=== PATIENT | male | born 1985 | race Caucasian/White ===

== ENCOUNTER 2021-09-10 15:49 | Emergency (ER) | payer OTHER ==
[2021-09-10 16:34] LABS: Urine Blood Negative (Negative); Urine Glucose Negative (Negative); Urine Protein Negative (Negative)
[2021-09-10 16:39] LABS: Absolute Lymphocytes (CBC) 1.3 K/uL (0.7-4.9); Hematocrit 45.4 % (39.6-49.0); Lymphocytes % 12.6 % (15.3-44.8); MCV 87.6 fL (80-100); MPV 8.7 fL (7.6-11.3); RBC Red Blood Cell Count 5.18 M/uL (4.33-5.43)
[2021-09-10 16:49] LABS: Albumin 4.2 g/dL (3.4-5.0); Bilirubin Total 0.6 mg/dL (0.2-1.0); Potassium 3.8 mmol/L (3.5-5.1); Protein, Total 8.1 g/dL (6.4-8.2)
[2021-09-10 17:05] LABS: Urine Bacteria <20 /HPF (<20); Urine RBC <5 /HPF (None Seen)
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
--- NOTE | 2021-09-10 17:30 | RAD REPORT ---
EXAM DESCRIPTION: CTAbdomen Pelvis W Contrast - 09/10/2021 5:18 pm CLINICAL HISTORY: Abdominal pain. Abdominal pain, acute, nonlocalized COMPARISON: No comparisons TECHNIQUE: Biphasic CT imaging of the abdomen and pelvis was performed with 100 ml non-ionic IV cont rast. All CT scans are performed using dose optimization technique as appropriate and may include automated exposure control or mA/KV adjustment according to patient size. FINDINGS: The lung bases are clear. The liver contains a 14 mm cyst in the left lobe. No aggressive liver lesion or intra/extrahepatic bi liary tree dilatation. Cholelithiasis. Spleen, pancreas, adrenal glands and kidneys are within normal limits. No bowel obstruction, free air, free fluid or abscess. The appendix is normal. No evidence of signi ficant lymphadenopathy. No suspicious bony findings. IMPRESSION: No acute intra-abdominal or pelvic finding. Cholelithiasis.
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
[2021-09-10 18:01] VITALS: TEMP 98.4; O2SAT 100
[2021-09-10 18:03] VITALS: BP 153/99
== END 2021-09-10 17:51 | disposition home or self-care (01) ==
LOC: ER 15:49
DX: K80.80 Other cholelithiasis without obstruction (principal); I10 Essential (primary) hypertension
CPT/HCPCS: 85025; 36415; 83690; 80053; 74177; 71100; 99284; Q9967; 81003; 81015